=== PATIENT | male | born 1985 | race Caucasian/White ===

== ENCOUNTER 2023-09-07 16:56 | Emergency (ER) | payer BC, OTHER ==
[2023-09-07 17:05] VITALS: BP 130/85; PULSE 70; RESP 18; TEMP 97.9; BMI 28.2
[2023-09-07] MEDS ORDERED: IBUPROFEN 600 MG TABLET (FP) PO ONE (18:02)
[2023-09-07] MEDS: IBUPROFEN 600 MG TABLET (FP) PO ONE (18:04)
== END 2023-09-07 19:31 | disposition home or self-care (01) ==
LOC: JERFT 16:56 → JER 16:56 → JERFT 19:31
DX: S60.946A Unspecified superficial injury of right little finger, initial encounter (principal); W50.0XXA Accidental hit or strike by another person, initial encounter; Y93.72 Activity, wrestling
CPT/HCPCS: 73130-TC-RT-FY; 73140-TC-RT-FY; 99283-25